=== PATIENT | male | born 1990 | race Caucasian/White ===

== ENCOUNTER 2020-04-07 14:45 | Emergency (ER) | payer BC ==
[2020-04-07] MEDS ORDERED: Ondansetron 4 MG Tab.DIS PO ONE (15:32)
--- NOTE | 2020-04-07 15:36 | EDM.PDOC ---
ED HPI GENERAL MEDICAL PROBLEM - General Chief Complaint: Chest Pain Stated Complaint: ABDOMINAL MUSCLE TIGHTENING Time Seen by Provider: 04/07/20 15:10 Source of Information: Reports: Patient History Limitations: Reports: No Limitations - History of Present Illness INITIAL COMMENTS - FREE TEXT/NARRATIVE: The patient presents with chest pain, nausea and vomiting. The patient ate lunch at [facility] and about a half hour later he developed severe mid sternal chest pain and some nausea. He then vomited about 3 times. Now he feels better. He has no chest pain or nausea now. He has no fever, chills, cough, congestion, abdominal pain, or diarrhea. He has no medical problems. He has no shortness of breath. Onset: Sudden Duration: Hour(s): Location: Reports: Chest Quality: Reports: Sharp Severity: Severe Improves with: Reports: None Worsens with: Reports: None Associated Symptoms: Reports: Chest Pain, Nausea/Vomiting. 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: Other (see below) Other Treatments ORCHARD MANAGER: chewable gas relief pill Mid-Sternal Chest Pain Score (Numeric/FACES): 10 - Related Data Allergies Allergy/AdvReac Type Severity Reaction Status Date / Time No Known Allergies Allergy Verified 04/07/20 15:02 Home Meds: Home Meds Ondansetron [Zofran ODT] 4 mg PO Q6H PRN #20 tab.dis 04/07/20 [Rx] ED ROS GENERAL - Review of Systems Review Of Systems: See Below Constitutional: Reports: No Symptoms HEENT: Reports: No Symptoms Respiratory: Reports: No Symptoms Cardiovascular: Reports: Chest Pain Endocrine: Reports: No Symptoms GI/Abdominal: Reports: Nausea, Vomiting. Denies: Abdominal Pain, Diarrhea : Reports: No Symptoms Musculoskeletal: Reports: No Symptoms ED EXAM, GENERAL - Physical Exam Exam: See Below Exam Limited By: No Limitations General Appearance: Alert, No Apparent Distress Ears: Normal External Exam Nose: Normal Inspection Head: Atraumatic, Normocephalic Neck: Normal Inspection Respiratory/Chest: No Respiratory Distress, Lungs Clear, Normal Breath Sounds Cardiovascular: Regular Rate, Rhythm, No Edema, No Murmur GI/Abdominal: Soft, Non-Tender, No Organomegaly, No Mass Extremities: Normal Inspection #1 Interpretation EKG Date: 04/07/20 Time: 15:17 Rhythm: NSR Rate (Beats/Min): 76 Allen: Normal P-Wave: Present QRS: Normal ST-T: Normal QT: Normal Course - Vital Signs Last Recorded V/S: Last Vital Signs Temp 95.9 F L 04/07/20 15:10 Pulse 83 04/07/20 15:10 Resp 18 04/07/20 15:10 BP 147/83 H 04/07/20 15:10 Pulse Ox 93 L 04/07/20 15:10 - Orders/Labs/Meds Orders: Active Orders 24 hr Category Date Time Status Cardiac Monitoring [RC] . DIRECTED Care 04/07/20 15:21 Active EKG Documentation Completion [RC] STAT Care 04/07/20 15:22 Active Labs: Laboratory Tests 04/07/20 04/07/20 Range/Units 15:34 15:34 WBC 9.63 H (4.23-9.07) K/mm3 RBC 5.21 (4.63-6.08) M/mm3 Hgb 14.7 (13.7-17.5) gm/dl Hct 45.8 (40.1-51.0) % MCV 87.9 (79.0-92.2) fl MCH 28.2 (25.7-32.2) pg MCHC 32.1 L (32.2-35.5) g/dl RDW Std Deviation 45.1 H (35.1-43.9) fL Plt Count 265 (163-337) K/mm3 MPV 9.4 (9.4-12.3) fl Neut % (Auto) 77.6 H (34.0-67.9) % Lymph % (Auto) 14.5 L (21.8-53.1) % Harney % (Auto) 6.9 (5.3-12.2) % Eos % (Auto) 0.8 (0.8-7.0) Baso % (Auto) 0.1 (0.1-1.2) % Neut # (Auto) 7.47 H (1.78-5.38) K/mm3 Lymph # (Auto) 1.40 (1.32-3.57) K/mm3 Harney # (Auto) 0.66 (0.30-0.82) K/mm3 Eos # (Auto) 0.08 (0.04-0.54) K/mm3 Baso # (Auto) 0.01 (0.01-0.08) K/mm3 Sodium 142 (136-145) mEq/L Potassium 3.9 (3.5-5.1) mEq/L Chloride 103 (98-107) mEq/L Carbon Dioxide 27 (21-32) mEq/L Anion Gap 15.9 H (5-15) BUN 18 (7-18) mg/dL Creatinine 0.9 (0.7-1.3) mg/dL Est Cr Clr Drug Dosing 123.92 mL/min Estimated GFR (MDRD) > 60 (>60) mL/min BUN/Creatinine Ratio 20.0 H (14-18) Glucose 118 H (74-106) mg/dL Calcium 9.2 (8.5-10.1) mg/dL Total Bilirubin 0.3 (0.2-1.0) mg/dL AST 32 (15-37) U/L ALT 49 (16-63) U/L Alkaline Phosphatase 99 (46-116) U/L Troponin I < 0.017 (0.00-0.056) ng/mL Total Protein 8.2 (6.4-8.2) g/dl Albumin 3.9 (3.4-5.0) g/dl Globulin 4.3 gm/dL Albumin/Globulin Ratio 0.9 L (1-2) Lipase 76 (73-393) U/L Meds: Medications Discontinued Medications Generic Name Dose Route Start Last Admin Trade Name Freq PRN Reason Stop Dose Admin Ondansetron HCl 4 mg 04/07/20 15:32 Zofran Odt PO 04/07/20 15:33 ONETIME ONE - Re-Assessments/Exams Free Text/Narrative Re-Assessment/Exam: 04/07/20 15:35 I ordered an EKG, CXR, labs and zofran 4mg PO ODT. His EKG shows a NSR with no acute changes. 04/07/20 16:21 His CXR looks good. His CBC and CMP look good. His troponin is negative. I will give him some zofran for home. Departure - Departure Time of Disposition: 16:25 Disposition: Home, Self-Care 01 Condition: Good Clinical Impression: Atypical chest pain Vomiting Qualifiers: Vomiting type: unspecified Vomiting Intractability: non-intractable Nausea presence: with nausea Qualified Code(s): R11.2 - Nausea with vomiting, unspecified Prescriptions: Ondansetron [Zofran ODT] 4 mg PO Q6H PRN #20 tab.dis PRN Reason: Nausea\vomiting Referrals: PCP,None [Primary Care Provider] - Forms: ED Department Discharge Additional Instructions: Drink plenty of fluids. Take the zofran every 6 hours as needed for nausea and vomiting. Please return if you are worse. Sepsis Event Note (ED) - Evaluation Sepsis Screening Result: No Definite Risk - Focused Exam Vital Signs: Vital Signs Temp Pulse Resp BP Pulse Ox 04/07/20 15:10 95.9 F L 83 18 147/83 H 93 L - My Orders Last 24 Hours: My Active Orders 04/07/20 15:21 Cardiac Monitoring [RC] . DIRECTED 04/07/20 15:22 EKG Documentation Completion [RC] STAT - Assessment/Plan Last 24 Hours: My Active Orders 04/07/20 15:21 Cardiac Monitoring [RC] . DIRECTED 04/07/20 15:22 EKG Documentation Completion [RC] STAT
--- NOTE | 2020-04-07 15:54 | CR ---
Chest: Portable view of the chest was obtained. Comparison: No previous chest imaging is available. Heart size and mediastinum are normal. Lungs are clear with no acute parenchymal change. Bony structures are grossly intact. Impression: 1. Nothing acute is appreciated on portable chest x-ray. Diagnostic code #1
== END 2020-04-07 16:30 | disposition home or self-care (01) ==
LOC: JD.ED 14:45
DX: R07.89 Other chest pain (principal); R11.2 Nausea with vomiting, unspecified
CPT/HCPCS: 36415; 71045; 71045-26; 80053; 83690; 84484; 85025; 93005; 99284; 99285-25

== ENCOUNTER 2020-04-28 16:54 | Emergency (ER) | payer BC ==
[2020-04-28] MEDS ORDERED: Ondansetron 4 MG Tab.DIS PO ONE (17:20)
--- NOTE | 2020-04-28 17:44 | EDM.PDOC ---
ED HPI GENERAL MEDICAL PROBLEM - General Chief Complaint: Abdominal Pain Stated Complaint: ABDOMINAL PAIN Time Seen by Provider: 04/28/20 17:04 Source of Information: Reports: Patient, RN Notes Reviewed History Limitations: Reports: No Limitations - History of Present Illness INITIAL COMMENTS - FREE TEXT/NARRATIVE: Patient is a 30-year-old male presenting to the emergency department with acute onset of upper abdominal pain, nausea, and vomiting. He states symptoms began about 30 minutes prior to arrival to ER. About 3 hours ago he states he drank a milkshake and feels that this may be related to this. He has had a similar episode about 3 weeks ago she states was much worse. He denies any diarrhea or heartburn. He does not take any daily medications, including a PPI. Prior to the onset of the pain 30 minutes ago, he was feeling well. 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 (see below) Other Treatments DEMOLITION CRANE OPERATOR: zofran Upper Abdomen Pain Score (Numeric/FACES): 7 - Related Data Allergies Allergy/AdvReac Type Severity Reaction Status Date / Time amoxicillin Allergy Severe Cannot Verified 04/28/20 17:08 Remember Home Meds: Home Meds Ondansetron [Zofran ODT] 4 mg PO Q6H PRN #20 tab.dis 04/07/20 [Rx] Past Medical History - Past Health History Medical/Surgical History: Denies Medical/Surgical History Psychiatric History: Reports: Anxiety, Depression - Infectious Disease History Infectious Disease History: Reports: Chicken Pox, Novel Coronavirus Social & Family History - Family History Family Medical History: Unobtainable - Tobacco Use Tobacco Use Status *Q: Current Every Day Tobacco User Years of Tobacco use: 11 Packs/Tins Daily: 0.2 - Caffeine Use Caffeine Use: Reports: Coffee, Energy Drinks, Soda, Tea - Recreational Drug Use Recreational Drug Type: Reports: Marijuana/Hashish Recreational Drug Use Frequency: Monthly ED ROS GENERAL - Review of Systems Review Of Systems: See Below Constitutional: Reports: No Symptoms. Denies: Fever, Chills HEENT: Reports: No Symptoms Respiratory: Reports: No Symptoms Cardiovascular: Reports: No Symptoms. Denies: Chest Pain Endocrine: Reports: No Symptoms GI/Abdominal: Reports: Abdominal Pain, Nausea, Vomiting : Reports: No Symptoms Musculoskeletal: Reports: No Symptoms Skin: Reports: No Symptoms Neurological: Reports: No Symptoms Psychiatric: Reports: No Symptoms Hematologic/Lymphatic: Reports: No Symptoms Immunologic: Reports: No Symptoms ED EXAM, GI/ABD - Physical Exam Exam: See Below General Appearance: Alert, WD/WN, No Apparent Distress Respiratory/Chest: No Respiratory Distress, Lungs Clear, Normal Breath Sounds, No Accessory Muscle Use, Chest Non-Tender Cardiovascular: Normal Peripheral Pulses, Regular Rate, Rhythm, No Edema, No Gallop, No JVD, No Murmur, No Rub GI/Abdominal Exam: Normal Bowel Sounds, Soft, No Organomegaly, No Distention, No Abnormal Bruit, No Mass, Pelvis Stable, Tender (Epigastric and right upper quadrant. Positive Davidson sign.) Neurological: Alert, Oriented, CN II-XII Intact, Normal Cognition, Normal Gait, Normal Reflexes, No Motor/Sensory Deficits Psychiatric: Normal Affect Skin Exam: Warm, Dry, Intact, Normal Color, No Rash Course - Vital Signs Last Recorded V/S: Last Vital Signs Temp 96.6 F L 04/28/20 17:12 Pulse 76 04/28/20 17:12 Resp BP 144/64 H 04/28/20 17:12 Pulse Ox 97 04/28/20 17:12 - Orders/Labs/Meds Labs: Laboratory Tests 04/28/20 04/28/20 Range/Units 17:27 17:27 WBC 8.66 (4.23-9.07) K/mm3 RBC 5.19 (4.63-6.08) M/mm3 Hgb 14.6 (13.7-17.5) gm/dl Hct 45.1 (40.1-51.0) % MCV 86.9 (79.0-92.2) fl MCH 28.1 (25.7-32.2) pg MCHC 32.4 (32.2-35.5) g/dl RDW Std Deviation 43.9 (35.1-43.9) fL Plt Count 249 (163-337) K/mm3 MPV 9.4 (9.4-12.3) fl Neut % (Auto) 67.7 (34.0-67.9) % Lymph % (Auto) 22.4 (21.8-53.1) % Ness % (Auto) 8.8 (5.3-12.2) % Eos % (Auto) 0.8 (0.8-7.0) Baso % (Auto) 0.2 (0.1-1.2) % Neut # (Auto) 5.86 H (1.78-5.38) K/mm3 Lymph # (Auto) 1.94 (1.32-3.57) K/mm3 Ness # (Auto) 0.76 (0.30-0.82) K/mm3 Eos # (Auto) 0.07 (0.04-0.54) K/mm3 Baso # (Auto) 0.02 (0.01-0.08) K/mm3 Sodium 142 (136-145) mEq/L Potassium 3.8 (3.5-5.1) mEq/L Chloride 103 (98-107) mEq/L Carbon Dioxide 26 (21-32) mEq/L Anion Gap 16.8 H (5-15) BUN 16 (7-18) mg/dL Creatinine 0.8 (0.7-1.3) mg/dL Est Cr Clr Drug Dosing 139.41 mL/min Estimated GFR (MDRD) > 60 (>60) mL/min BUN/Creatinine Ratio 20.0 H (14-18) Glucose 117 H (74-106) mg/dL Calcium 9.0 (8.5-10.1) mg/dL Total Bilirubin 0.3 (0.2-1.0) mg/dL AST 24 (15-37) U/L ALT 44 (16-63) U/L Alkaline Phosphatase 97 (46-116) U/L C-Reactive Protein 1.2 H* (<1.0) mg/dL Total Protein 7.8 (6.4-8.2) g/dl Albumin 3.9 (3.4-5.0) g/dl Globulin 3.9 gm/dL Albumin/Globulin Ratio 1.0 (1-2) Lipase 86 (73-393) U/L Meds: Medications Discontinued Medications Generic Name Dose Route Start Last Admin Trade Name Freq PRN Reason Stop Dose Admin Ondansetron HCl 4 mg 04/28/20 17:20 04/28/20 17:24 Zofran Odt PO 04/28/20 17:21 4 mg ONETIME ONE Administration - Re-Assessments/Exams Free Text/Narrative Re-Assessment/Exam: 04/28/20 18:06 Hematology is grossly unremarkable. Lipase, liver enzymes, alkaline phosphatase are normal. CRP minimally elevated at 1.2. Patient's symptoms have essentially resolved. He has had no further vomiting and little pain. Results of the right upper quadrant ultrasound are pending. 04/28/20 18:48 Radiologist read of the ultrasound of the right upper quadrant shows a suboptimal exam. Echogenic liver compatible with fatty infiltration. No other gross findings is seen. Patient symptoms have completely resolved at this point hematology is normal. Discussed with patient that is likely suffering from GERD. Recommend that he start omeprazole 20 mg daily. Follow-up with primary care provider in a few weeks. Return to ER as needed. Departure - Departure Time of Disposition: 18:49 Disposition: Home, Self-Care 01 Condition: Good Clinical Impression: Abdominal pain Qualifiers: Abdominal location: upper abdomen, unspecified Qualified Code(s): R10.10 - Upper abdominal pain, unspecified - Discharge Information *PRESCRIPTION DRUG MONITORING PROGRAM REVIEWED*: No *COPY OF PRESCRIPTION DRUG MONITORING REPORT IN PATIENT MARLIN: No Referrals: PCP,None [Primary Care Provider] - Forms: ED Department Discharge Additional Instructions: You were seen in the emergency department today for acute onset of upper abdominal pain with nausea and vomiting. Work-up included blood work and an ultrasound of your right upper abdomen, including gallbladder. Results of your work-up were found to be normal. While in the ER, you received Zofran for nausea. Your symptoms have essentially resolved. We discussed, you are likely suffering from GERD. I would recommend starting omeprazole 20 mg daily. Follow-up in the clinic with a primary care provider in a few weeks for ongoing management. Return to ER for any new or worsening symptoms of concern. Sepsis Event Note (ED) - Evaluation Sepsis Screening Result: No Definite Risk - Focused Exam Vital Signs: Vital Signs Temp Pulse BP Pulse Ox 04/28/20 17:12 96.6 F L 76 144/64 H 97
--- NOTE | 2020-04-28 18:42 | US ---
Limited abdominal ultrasound: Multiple real-time images were obtained of the right upper abdomen were obtained. Comparison: No prior abdominal imaging is available. Technologist's note: Suboptimal exam due to patient body habitus Findings: Gallbladder is not well distended. No definite shadowing gallstones are appreciated. Liver is echogenic in relation to the kidney compatible with fatty infiltration. Right kidney shows no discrete hydronephrosis. No obvious mass is seen. Right kidney measures 14.2 cm in size. Proximal aorta shows no aneurysm. Pancreas is obscured by bowel gas. Inferior vena cava is patent. Main portal vein shows normal hepatopedal flow. Impression: 1. Suboptimal exam as noted above. 2. Echogenic liver compatible with fatty infiltration. 3. No other gross finding is seen. Diagnostic code #2
== END 2020-04-28 18:58 | disposition home or self-care (01) ==
LOC: JD.ED 16:54
DX: R10.10 Upper abdominal pain, unspecified (principal); Z88.0 Allergy status to penicillin; Z72.0 Tobacco use
CPT/HCPCS: 36415; 76705; 80053; 83690; 85025; 86140; 99284; A9270; 99283

== ENCOUNTER 2022-07-07 04:55 | Emergency (ER) | payer BC ==
[2022-07-07] MEDS ORDERED: Ondansetron 4 MG in Sodium Chloride 0.9% 50 ML IV ONE (05:33)
[2022-07-07] MEDS ORDERED: Ondansetron 4 MG/2 ML SDV ONE (05:52)
[2022-07-07] MEDS ORDERED: Ondansetron 4 MG/2 ML SDV IVPUSH ONE (05:53)
[2022-07-07 06:03] LABS: BASOPHILS ABSOLUTE AUTO 0.21 K/mm3 (0.01-0.08); EOSINOPHILS ABSOLUTE AUTO 0.02 K/mm3 (0.04-0.54); EOSINOPHILS PERCENT AUTO 0.3 (0.8-7.0); HEMATOCRIT 44.7 % (40.1-51.0); HEMOGLOBIN 14.5 gm/dl (13.7-17.5); IMMATURE GRAN ABSOLUTE AUTO 0.01 K/mm3 (0.00-0.10); IMMATURE GRAN PERCENT AUTO 0.1 % (<=1.0); LYMPHOCYTES ABSOLUTE AUTO 4.04 K/mm3 (1.32-3.57); LYMPHOCYTES PERCENT AUTO 57.5 % (21.8-53.1); MEAN CORPUSCULAR HEMOGLOBIN 27.8 pg (25.7-32.2); MEAN CORPUSCULAR HGB CONC 32.4 g/dl (32.2-35.5); MEAN CORPUSCULAR VOLUME 85.8 fl (79.0-92.2); MEAN PLATELET VOLUME 9.2 fl (9.4-12.3); MONOCYTES ABSOLUTE AUTO 0.93 K/mm3 (0.30-0.82); MONOCYTES PERCENT AUTO 13.2 % (5.3-12.2); NEUTROPHILS ABSOLUTE AUTO 1.82 K/mm3 (1.78-5.38); NEUTROPHILS PERCENT AUTO 25.9 % (34.0-67.9); PLATELET COUNT,PLT 219 K/mm3 (163-337); RED BLOOD CELL COUNT 5.21 M/mm3 (4.63-6.08); WHITE BLOOD CELL COUNT,WBC 7.03 K/mm3 (4.23-9.07)
[2022-07-07 06:18] LABS: A/G RATIO 0.9 (1-2); ALBUMIN 3.7 g/dl (3.4-5.0); ANION GAP 10.8 (5-15); BILIRUBIN TOTAL 0.6 mg/dL (0.2-1.0); CALCIUM 9.2 mg/dL (8.5-10.1); EST CRCL DRUG DOSING (CG) 109.5 mL/min; POTASSIUM,K 3.8 mEq/L (3.5-5.1); PROTEIN TOTAL,TP 7.9 g/dl (6.4-8.2)
[2022-07-07] MEDS ORDERED: Morphine 4 MG/ML Syringe IVPUSH ONE (06:30)
== END 2022-07-07 06:49 | disposition home or self-care (01) ==
LOC: JD.ED 04:55
DX: K81.9 Cholecystitis, unspecified (principal); K21.9 Gastro-esophageal reflux disease without esophagitis; Z88.0 Allergy status to penicillin; Z79.899 Other long term (current) drug therapy; Z86.16 Personal history of COVID-19; Z87.891 Personal history of nicotine dependence
CPT/HCPCS: 36415; 74150; 80053; 83690; 85025; 96374; 99284; J2405

== ENCOUNTER 2024-11-16 12:12 | Emergency (ER) | payer BC | END 2024-11-16 14:34 | disposition home or self-care (01) | LOC: JD.ED 12:12 | DX: F41.8 Other specified anxiety disorders (principal); K21.9 Gastro-esophageal reflux disease without esophagitis; Z86.16 Personal history of COVID-19; Z90.49 Acquired absence of other specified parts of digestive tract; Z88.0 Allergy status to penicillin; Z79.899 Other long term (current) drug therapy | CPT/HCPCS: 99283; 99284 ==